=== PATIENT | female | born 1990 ===

== ENCOUNTER 2017-04-12 09:11 | Day surgery (SDC) | payer BC ==
[2017-04-12] MEDS ORDERED: Lactated Ringer's 1,000 ML IV ONE (11:12)
[2017-04-12] MEDS ORDERED: Propofol 10 mg/ml Inj (20 ML) ONE (11:18)
[2017-04-12 11:59] VITALS: TEMP 97.7
[2017-04-12 12:00] VITALS: RESP 14
[2017-04-12 12:45] VITALS: BP 110/63; PULSE 52; O2SAT 96
== END 2017-04-12 12:40 | disposition home or self-care (01) ==
LOC: C.ENDO 09:11
PROVIDERS: ATTEND Internal Medicine Gastroenterology
DX: K29.50 Unspecified chronic gastritis without bleeding (principal); B96.81 Helicobacter pylori [H. pylori] as the cause of diseases classified elsewhere; R10.13 Epigastric pain
CPT/HCPCS: 43239; 84703; 88305; 88313; 88342; J2001; J2704; J7120